=== PATIENT | male | born 1950 | race Caucasian/White ===

== ENCOUNTER 2021-11-10 06:32 | Emergency (ER) | payer MEDICARE, OTHER ==
[2021-11-10 06:39] VITALS: TEMP 97.7
--- NOTE | 2021-11-10 07:20 | XR ---
EXAMINATION TYPE: XR foot complete RT DATE OF EXAM: 11/10/2021 COMPARISON: None HISTORY: Pain, fall pain across metatarsals TECHNIQUE: 3 view right foot FINDINGS: No acute fracture or dislocation is evident. Joint spaces are preserved. Soft tissues are n ormal. Follow up exams can be performed 7-10 days from acute trauma for continued pain IMPRESSION: 1. No acute osseous abnormality right foot
--- NOTE | 2021-11-10 07:36 | ED ---
Lower Extremity Injury HPI - General Chief Complaint: Extremity Injury, Lower Stated Complaint: RT foot injury Time Seen by Provider: 11/10/21 06:42 Source: patient, RN notes reviewed Mode of arrival: wheelchair Limitations: no limitations - History of Present Illness Initial Comments: 71-year-old male presents emergency department with chief complaint of right foot pain. Patient states he got up quickly to go to the bathroom states that he kicked the corner of a door frame. Patient states he has bruising on his right foot, pain when he ambulates. No paresthesias. No laceration or injury. - Related Data Allergies Allergy/AdvReac Type Severity Reaction Status Date / Time Iodine and Iodide Containing Allergy Rash/Hives Verified 11/10/21 06:39 Produc Penicillins Allergy Rash/Hives Verified 11/10/21 06:39 Review of Systems ROS Statement: Those systems with pertinent positive or pertinent negative responses have been documented in the HPI. ROS Other: All systems not noted in ROS Statement are negative. Past Medical History Past Medical History: Asthma, Diabetes Mellitus, Hyperlipidemia Additional Past Medical History / Comment(s): AAA, Barrets syndrome History of Any Multi-Drug Resistant Organisms: None Reported Past Surgical History: No Surgical Hx Reported Past Psychological History: No Psychological Hx Reported Smoking Status: Former smoker Past Alcohol Use History: None Reported Past Drug Use History: None Reported General Exam Limitations: no limitations General appearance: alert, in no apparent distress Head exam: Present: atraumatic, normocephalic, normal inspection Eye exam: Present: normal appearance, PERRL, EOMI. Absent: scleral icterus, conjunctival injection, periorbital swelling Neck exam: Present: normal inspection. Absent: tenderness, meningismus, lymphadenopathy Respiratory exam: Present: normal lung sounds bilaterally. Absent: respiratory distress, wheezes, rales, rhonchi, stridor Cardiovascular Exam: Present: regular rate, normal rhythm, normal heart sounds. Absent: systolic murmur, diastolic murmur, rubs, gallop, clicks Extremities exam: Present: other (Right foot there is ecchymosis over the distal metatarsal region, tenderness with palpation no lateral foot tenderness no proximal foot tenderness neurovascular intact, no digit injury.) Course Vital Signs 11/10/21 06:34 Temperature 97.7 F Pulse Rate 74 Respiratory 22 Rate Blood Pressure 135/72 O2 Sat by Pulse 99 Oximetry Medical Decision Making - Medical Decision Making X-rays negative for acute fracture. Patient has a right foot contusion. Patient discharged in stable condition return parameters were discussed. Disposition Clinical Impression: Contusion of right foot Disposition: HOME SELF-CARE Condition: Stable Instructions (If sedation given, give patient instructions): Foot Contusion (ED) Additional Instructions: Please return to the Emergency Department if symptoms worsen or any other wale rns. Is patient prescribed a controlled substance at d/c from ED?: No Referrals: Nonstaff,Physician [Primary Care Provider] - 1-2 days Time of Disposition: 07:36
[2021-11-10 07:40] VITALS: BP 124/67; PULSE 65; RESP 18
== END 2021-11-10 07:54 | disposition home or self-care (01) ==
LOC: EC 06:32
DX: S90.31XA Contusion of right foot, initial encounter (principal); E11.9 Type 2 diabetes mellitus without complications; J45.909 Unspecified asthma, uncomplicated; Z87.891 Personal history of nicotine dependence; Z88.0 Allergy status to penicillin; Z88.8 Allergy status to other drugs, medicaments and biological substances; W22.09XA Striking against other stationary object, initial encounter
CPT/HCPCS: 99283